=== PATIENT | female | born 1940 | race Caucasian/White ===

== ENCOUNTER → 2020-09-29 | Outpatient (CLI) | payer MEDICARE ==
[~2020-09-29] MED LIST: ASPI-482 PO; CALC200T19 PO; IBUP200T58 PO; NAPR220C4 PO; VIT1TABL32 PO
--- NOTE | 2020-09-29 12:05 | RAD ---
Ultrasound carotid Doppler 09/29/2020 11:34 AM INDICATION: Amaurosis fugax COMPARISON: None available TECHNIQUE: Sonographic imaging of the carotid vasculature was performed utilizing grayscale, color Do ppler and spectral waveform analysis. FINDINGS: (All velocities are measured cm per second) Right carotid: No significant plaque. Peak systolic velocity: Proximal common carotid artery: 62 Distal common carotid artery: 55 Proximal internal carotid artery: 49 Middle internal carotid artery: 64 Distal internal carotid artery: 85 End-diastolic velocity: 15 External carotid artery: 100 Internal carotid artery/common carotid artery ratio: 0.85-1.5 Vertebral artery: Antegrade flow Subclavian artery: Triphasic waveform Left carotid: There is intimal thickening involving the left distal common carotid artery. Calcified and noncalcified atherosclerotic plaque is identified at the left carotid bifurcation without signifi cant grayscale stenosis. Peak systolic velocity: Proximal common carotid artery: 85 Distal common carotid artery: 74 Proximal internal carotid artery: 55 Middle internal carotid artery: 93 Distal internal carotid artery: 90 End-diastolic velocity: 13 External carotid artery: 102 Internal carotid artery/common carotid artery ratio: 0.68-1.2 Vertebral artery: Antegrade flow Subclavian artery: Triphasic waveform IMPRESSION: 1. No evidence for hemodynamically significant carotid stenosis. 2. Antegrade flow is identified in the vertebral arteries. 3. Evaluation of the carotid vasculature and measurements for luminal stenosis was performed utilizin g NASCET criteria. Electronically signed by: Jodie Leiva MD (09/29/2020 12:03 PM) [id number]
== END ==
LOC: US 11:22
PROVIDERS: ATTEND Family Medicine
DX: G45.3 Amaurosis fugax (principal)
CPT/HCPCS: 93880